=== PATIENT | female | born 1990 | race Caucasian/White ===

== ENCOUNTER 2020-08-04 16:58 | Inpatient (IN) | payer OTHER ==
[~2020-08-04 16:58] MED LIST: Iopamidol-370 76% 500 ML 1 ML ONE
[2020-08-04 18:37] LABS: #Basophils 0.1 thou/uL (0.0-0.2); #Eosinphils 0.3 thou/uL (0.0-0.7); #Monocytes 1.3 thou/uL (0.11-0.59); #Neutrophils 4.3 thou/uL (1.40-6.50); %Basophils 0.9 % (0.0-1.0); %Eosinophils 2.9 % (0.0-10.0); %Lymphocytes 33.5 % (21.0-51.0); %Monocytes 14.2 % (0.0-10.0); %Neutrophils 48.6 % (42.0-75.0); Hemoglobin 13.4 g/dL (12.0-16.0); Mean Corpuscular HGB CONC 33.3 g/dL (32.0-36.0); Mean Corpuscular Hemoglobin 31.6 pg (27.0-31.0); Mean Platelet Volume 8.1 fL (7.4-10.4); Platelet Count 128 thou/uL (130-400); RBC Distribution Width 11.8 % (11.5-14.5); Red Blood Cell (RBC) Count 4.23 mill/uL (4.20-5.40); White Blood Cell (WBC) Count 8.9 thou/uL (4.8-10.8)
[2020-08-04 18:43] LABS: Bilirubin Negative (Negative); Blood, Urine Negative (Negative); Clarity Clear (Clear); Glucose, Urine (Dipstick) Normal (Negative); Ketone, Urine Negative (Negative); Leukocyte Negative Leu/uL (Negative); Nitrite Negative (Negative); Protein, Urine (Dipstick) Negative (Neg-Trace); Specific Gravity, Urine 1.015 (1.002-1.036); Urobilinogen Normal mg/dL (Less than 2)
[2020-08-04 18:45] LABS: BHCG - Serum Negative (NEGATIVE); Pregs Control Background? CLEAR/WHITE (CLR/WHITE); Pregs Control Bar Appear? YES (CONTROL BAR)
[2020-08-04 18:52] LABS: ALT (SGPT) 21 U/L (8-55); AST (SGOT) 13 U/L (5-34); Albumin 3.7 g/dL (3.5-5.0); Alkaline Phosphatase 64 U/L (40-110); Anion Gap 10 mmol/L (10-20); BUN (Urea Nitrogen) 13 mg/dL (7.0-18.7); Bilirubin, Total Less than 0.2 mg/dL (0.2-1.2); Calc. Creatinine Clearance 0 mL/min (70-130); Carbon Dioxide 29 mmol/L (22-29); Chloride 103 mmol/L (98-107); Globulin 3.3 g/dL (2.4-3.5); Glucose 96 mg/dL (70-105); Lipase 28 U/L (8-78); Potassium 3.9 mmol/L (3.5-5.1); Sodium 138 mmol/L (136-145)
--- NOTE | 2020-08-04 19:40 | CT ---
CT abdomen and pelvis with IV contrast HISTORY: Abdominal pain. Crohn's disease. COMPARISON: 03/05/2018. FINDINGS: The lung bases are clear. Bilateral breast implants partially visualized. Solid organs are intact. Urinary bladder is unremarkable. IUD in the endometrial cavity. No free air or free fluid. No evidence of bowel obstruction or inflammation. Appendix unremarkable. Large amount of stool predom inantly within the right colon. IMPRESSION : Constipation. No evidence of bowel inflammation.
[2020-08-04] MEDS ORDERED: methylPREDNISolone Sod Succ 40 MG VIAL IVP SCH (22:00)
[2020-08-04] MEDS ORDERED: Bacteriostatic Water 30 ML VIAL FS PRN (22:15)
[2020-08-04] MEDS ORDERED: GoLYTELY 4,000 ml Bottle PO SCH (23:00)
[2020-08-04] MEDS: methylPREDNISolone Sod Succ 40 MG VIAL IVP SCH (23:26)
--- NOTE | 2020-08-04 23:56 | PDOC.HHP ---
Hospitalist HPI - History of Present Illness History of Present Illness: ADMISSION DATE: 08/04/2020 TIME OF ASSESSMENT: 2330 PRIMARY CARE PHYSICIAN: Dr. Rose CHIEF COMPLAINT: Rectal bleeding HPI: The patient is a 29-year-old female who presented to the ER with complaints of rectal bleeding ongoing for approximately 1 month. Over the past month she has seen a provider at her [facility] office who placed her on oral steroids. Patient states that these oral steroids cause leg pains and that they have not helped her flares. Over this past month her primary care provider has also completed 2 rounds of outpatient IV steroid infusions. Patient was able to have 1 normal bowel movement on 07/31/2020 but now is experiencing rectal bleeding again and feels she is constipated. She is also placed herself on a clear liquid diet as whenever she eats food causes diffuse abdominal cramping and pain. She denies nausea, vomiting, dysuria, fever, contact with sick persons. ED COURSE: Today in the ER they completed a CT of the abdomen and pelvis and completed lab work. They administered no medications. Dr. Gann with gastroenterology saw the patient in the ER and she is to begin a bowel prep tonight. VITAL SIGNS SunAug 04, 2020 17:00 AMINA Pace Dannette Pulse: 73, Resp: 16, Temp: 98.0 (Oral), Pain: 0, O2 sat: 99 on (Room Air), Time: 08/04/2020 17:00. VITAL SIGNS SunAug 04, 2020 17:18 AMINA Ricardo Amanda BP: 116/72, MAP: 86, Pulse: 89, Resp: 17, Temp: 98.5 (Oral), Pain: 0, O2 sat: 100 on (Room Air), Time: 08/04/2020 17:18. VITAL SIGNS SunAug 04, 2020 21:22 AMINA Ricardo Amanda BP: 101/66, MAP: 77, Pulse: 78, Resp: 17, Temp: 98.0 (Oral), Pain: 0, O2 sat: 98 on (Room Air), Time: 08/04/2020 21:22. PAST MEDICAL HISTORY: Crohn's disease PAST SURGICAL HISTORY: No surgical history SOCIAL HISTORY: Patient lives at home with family. She denies smoking, drugs, alcohol use. FAMILY HISTORY: Unknown ALLERGIES: No known drug allergies CURRENT MEDICATIONS: No home medications Hospitalist ROS - Review of Systems Gastrointestinal: reports: constipation, hematochezia All other systems reviewed; all pertinent +/- noted in HPI/Subj - Medication Medications: Active Medications Generic Name Dose Route Start Last Admin Trade Name Aditya PRN Reason Stop Dose Admin Methylprednisolone Sodium Succinate 40 mg 08/04/20 23:59 08/04/20 23:26 Methylprednisolone Sod Succ 40 Mg Vial IVP 40 mg 0800,1600,2359 KATI Administration Polyethylene Glycol/Electrolytes 4,000 ml 08/04/20 23:00 08/04/20 23:27 Golytely 4,000 Ml Bottle PO 08/05/20 06:00 4,000 ml NOW KATI Administration Hospitalist History - Past Medical History Source: patient - Exam General Appearance: NAD, awake alert Eye: PERRL, anicteric sclera Neck: supple, symmetric Heart: RRR, no murmur, no gallops, no rubs, normal peripheral pulses Respiratory: CTAB, no wheezes, no rales, no ronchi Gastrointestinal: soft, non-tender, non-distended, normal bowel sounds Skin: normal turgor Musculoskeletal: normal tone, normal strength, no muscle wasting Psychiatric: normal affect, normal behavior Hospitalist Results - Labs Result Diagrams: 08/06/20 05:08 08/06/20 05:08 Lab results: WBC 8.9 thou/uL (4.8-10.8) 08/04/20 18:17 Hgb 13.4 g/dL (12.0-16.0) 08/04/20 18:17 Hct 40.2 % (36.0-47.0) 08/04/20 18:17 MCV 95.0 fL (78.0-98.0) 08/04/20 18:17 Plt Count 128 thou/uL (130-400) L 08/04/20 18:17 Neutrophils % 48.6 % (42.0-75.0) 08/04/20 18:17 Sodium 138 mmol/L (136-145) 08/04/20 18:17 Potassium 3.9 mmol/L (3.5-5.1) 08/04/20 18:17 Chloride 103 mmol/L (98-107) 08/04/20 18:17 Carbon Dioxide 29 mmol/L (22-29) 08/04/20 18:17 BUN 13 mg/dL (7.0-18.7) 08/04/20 18:17 Creatinine 0.73 mg/dL (0.6-1.1) 08/04/20 18:17 Glucose 96 mg/dL (70-105) 08/04/20 18:17 Lactic Acid 0.9 mmol/L (0.5-2.2) 08/04/20 18:17 Calcium 9.0 mg/dL (7.8-10.44) 08/04/20 18:17 Total Bilirubin Less than 0.2 mg/dL (0.2-1.2) L 08/04/20 18:17 AST 13 U/L (5-34) 08/04/20 18:17 ALT 21 U/L (8-55) 08/04/20 18:17 Alkaline Phosphatase 64 U/L (40-110) 08/04/20 18:17 C-Reactive Protein Less than 0.50 mg/dL (= or < 0.5) 08/04/20 18:17 Serum Total Protein 7.0 g/dL (6.0-8.3) 08/04/20 18:17 Albumin 3.7 g/dL (3.5-5.0) 08/04/20 18:17 Lipase 28 U/L (8-78) 08/04/20 18:17 Urine Ketones Negative mg/dL (Negative) 08/04/20 18:34 Urine Blood Negative (Negative) 08/04/20 18:34 Urine Nitrite Negative (Negative) 08/04/20 18:34 Ur Leukocyte Esterase Negative Magaly/uL (Negative) 08/04/20 18:34 - Radiology Interpretation CT scan - abdomen Additional Comment: FINDINGS: The lung bases are clear. Bilateral breast implants partially visualized. Solid organs are intact. Urinary bladder is unremarkable. IUD in the endometrial cavity. No free air or free fluid. No evidence of bowel obstruction or inflammation. Appendix unremarkable. Large amount of stool predominantly within the right colon. Hospitalist H&P A/P - Plan Plan: Constipation Patient to begin bowel prep tonight per Dr. Gann Clear liquid until 7 AM and then n.p.o. Colonoscopy scheduled for a.m. Ulcerative colitis versus Crohn's Continue IV steroids scheduled Stool studies once patient has bowel movement Rectal bleeding Monitor labs in a.m. Patient typed and crossed in the ER SCDs for DVT prophylaxis, no anticoagulants due to bleeding Monitor vital signs every 4 hour CODE STATUS: Full Surrogate decision-maker is her mother Patient was discussed with Dr. Henriquez
[2020-08-05 00:08] VITALS: BMI 22.3
[2020-08-05] MEDS ORDERED: Ondansetron PF 4 MG/2 ML Vial IVP PRN (00:35)
[2020-08-05] MEDS ORDERED: Ondansetron ODT 4 MG TAB PO PRN (00:35)
--- NOTE | 2020-08-05 03:07 | CON ---
DATE OF CONSULTATION: 08/04/2020 CHIEF COMPLAINT: Blood in the stool, abdominal pain. HISTORY OF PRESENT ILLNESS: Ms. Ribeiro is a 29-year-old woman with a history of left-sided ulcerative colitis, who presented to the emergency room this evening with a one month history of red blood in the stool and cramping, left lower quadrant abdominal pain, lasting several minutes after meals and up to 10 small volume mucus stools per day and constipation. She has a history of ulcerative proctitis or left-sided colitis, which she has treated intermittently with short courses of IV steroids. A month ago, she was seen in the clinic and was started on prednisone. However, she develops aching pain in the muscles of her legs when she takes prednisone and so she did not remain on this for long. A week ago, she saw her primary physician, who gave her IV Solu-Medrol twice daily for four days and then the symptoms failed to improve and her dose was increased for a couple of days and ultimately today, she finally came on into the emergency room for further care. She has not been on long-term treatment for ulcerative colitis and has not kept followup appointments with her primary GI physician, Dr. Carey. Her weight has been stable. She has had no fevers. No nausea or vomiting. No rashes or joint problems or eye problems. PAST MEDICAL HISTORY: Left-sided ulcerative colitis diagnosed around age 13. PAST SURGICAL HISTORY: Breast implants. FAMILY HISTORY: Negative for inflammatory bowel disease or GI malignancy. SOCIAL HISTORY: No alcohol, tobacco, or drugs. ALLERGIES: NO KNOWN DRUG ALLERGIES. MEDICATIONS: Prior to admission, none. REVIEW OF SYSTEMS: Negative x10 systems reviewed except as stated in the history of present illness. PHYSICAL EXAMINATION: VITAL SIGNS: Blood pressure 116/72, pulse 89, and temperature 98.5. GENERAL: She is in no acute distress. Alert and oriented x3. HEENT: Eyes have no scleral icterus. Oropharynx is clear without lesions. No cervical or supraclavicular lymphadenopathy. LUNGS: Clear to auscultation bilaterally. HEART: Regular rate and rhythm without murmur. ABDOMEN: Soft. Minimal tenderness in left lower quadrant without guarding. Bowel sounds are present. EXTREMITIES: No lower extremity edema. Cranial nerves are grossly intact. LABORATORY DATA: White blood cell count 8.9, hemoglobin 13.4, platelets 128. Bilirubin 0.2, AST 13, ALT 21, alkaline phosphatase 64, creatinine 0.73, albumin 3.7. IMPRESSION: 1. Ulcerative chronic proctitis versus left-sided colitis. She has had symptoms of chronic rectal inflammation with unproductive urges and mucus stools and blood in the stool up to 10 times per day. She does get some left lower quadrant cramping after eating. She has not been treating her disease with chronic medications and just has taken IV Solu-Medrol periodically over the last several years. Her last flare was three years ago. 2. She reports side effects with prednisone with aching muscle pain throughout her legs. RECOMMENDATIONS: 1. We will give methylprednisolone IV 40 mg q.8 hours. 2. Stool studies including Clostridium difficile culture, ova and parasite. 3. We will plan a bowel prep this evening and colonoscopy tomorrow. Please note that the CT scan in the ER just shows large amount of retained stool in the right colon, but was otherwise negative. 4. Depending on the findings with colonoscopy to determine the extent of her disease, she might need to be started on rectal treatment either mesalamine or steroids or potentially chronic immune suppression. She has not really been compliant with long-term treatment prior to this. She seems more willing at this time to consider pursuing this. Job ID: [id number]
[2020-08-05 06:46] LABS: #Lymphocytes 0.7 thou/uL (1.20-3.40); #Monocytes 0.1 thou/uL (0.11-0.59); #Neutrophils 7.5 thou/uL (1.40-6.50); %Basophils 0.2 % (0.0-1.0); %Eosinophils 0.3 % (0.0-10.0); %Lymphocytes 8.4 % (21.0-51.0); %Monocytes 0.8 % (0.0-10.0); %Neutrophils 90.3 % (42.0-75.0); Hemoglobin 13.1 g/dL (12.0-16.0); Mean Corpuscular HGB CONC 32.8 g/dL (32.0-36.0); Mean Corpuscular Hemoglobin 31.3 pg (27.0-31.0); Mean Corpuscular Volume 95.6 fL (78.0-98.0); Mean Platelet Volume 8.4 fL (7.4-10.4); Platelet Count 125 thou/uL (130-400); RBC Distribution Width 11.6 % (11.5-14.5); Red Blood Cell (RBC) Count 4.18 mill/uL (4.20-5.40); White Blood Cell (WBC) Count 8.3 thou/uL (4.8-10.8)
[2020-08-05 07:05] LABS: Anion Gap 12 mmol/L (10-20); BUN (Urea Nitrogen) 9 mg/dL (7.0-18.7); Calc. Creatinine Clearance 129 mL/min (70-130); Calcium 8.6 mg/dL (7.8-10.44); Carbon Dioxide 28 mmol/L (22-29); Chloride 105 mmol/L (98-107); Glucose 130 mg/dL (70-105); Potassium 3.8 mmol/L (3.5-5.1); Sodium 141 mmol/L (136-145)
[2020-08-05] MEDS: methylPREDNISolone Sod Succ 40 MG VIAL IVP SCH ×3 (08:35→23:50)
[2020-08-05] MEDS ORDERED: FLU VACC QS2020-21(6MOS UP)/PF 60 MCG/0.5 ML SYRINGE IM ONE (09:00)
--- NOTE | 2020-08-05 13:26 | PDOC.HOSPP ---
- Subjective Encounter Date: 08/05/20 Encounter Time: 10:00 Subjective: CC: abdominal pain, bloody diarrhea Patient states her abdominal pain is resolved. She continues to have bloody stools. Patient states that she typically has bloody stools 10 times a day during her flares. She said the stools are pellet like. She denies fevers. She states he had tried IV steroids as an outpatient due to Covid with no relief of her symptoms. She states that she had tried a clear liquid diet which had helped her abdominal pain some but did not help her bloody stools. She was diagnosed with Crohn's disease initially when she was 13 years old. 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 Her mother states that later they decided she had u lcerative colitis instead of Crohn's disease. She is been following with Dr. Payne 10 years - Objective Vital Signs & Weight: Vital Signs (12 hours) Temp Pulse Resp BP Pulse Ox 08/05/20 12:26 98.0 F 81 16 87/44 L 97 08/05/20 08:45 97.8 F 86 16 96/60 97 08/05/20 03:24 97.6 F 71 16 98/64 99 Weight Weight 151 lb I&O: 08/04/20 08/05/20 08/06/20 06:59 06:59 06:59 Intake Total 15 Balance 15 Result Diagrams: 08/05/20 05:36 08/05/20 05:36 Hospitalist ROS - Review of Systems Constitutional: denies: fever, chills - Medication Medications: Active Medications Generic Name Dose Route Start Last Admin Trade Name Aditya PRN Reason Stop Dose Admin Methylprednisolone Sodium Succinate 40 mg 08/04/20 23:59 08/05/20 08:35 Methylprednisolone Sod Succ 40 Mg Vial IVP 40 mg 0800,1600,2359 [facility] Administration - Exam General Appearance: NAD, awake alert Eye: PERRL, anicteric sclera ENT: normocephalic atraumatic, no oropharyngeal lesions Neck: no JVD Heart: RRR, no murmur, no gallops, no rubs Respiratory: CTAB, no wheezes, no rales, no ronchi Gastrointestinal: soft, normal bowel sounds Gastrointestinal - other findings: Mild left lower quadrant tenderness Extremities: no cyanosis, no clubbing, no edema Skin: normal turgor, no lesions, no rashes Neurological: cranial nerve grossly intact, normal sensation to touch, no weakness Hosp A/P - Plan CT abdomen: Large amount of stool in the right colon. No evidence of inflamma tion Is a 29-year-old female with a past medical history of IBD presented to the emergency room with bloody diarrhea #Abdominal Pain #Bloody stools - possibly ulcerative colitis flare -Continue IV steroids -Patient is scheduled for colonoscopy today, follow-up biopsy results -We will change patient to inpatient status since anticipate greater than 2 midnight DVT prophylaxis: holding
[2020-08-05] MEDS ORDERED: GoLYTELY 4,000 ml Bottle PO SCH (15:30)
[2020-08-05 19:17] LABS: SARS-CoV-2 NAA Rapid Test Not Detected (NotDetected)
--- NOTE | 2020-08-05 21:13 | PRG ---
DATE OF SERVICE: 08/05/2020 REASON FOR CONSULTATION: Probable ulcerative colitis flare. SUBJECTIVE: Today, the patient was scheduled for a colonoscopy for further evaluation of her abdominal pain and hematochezia. However, the patient had not had a COVID testing done on admission and therefore had not undergone pre-procedure screening appropriately. As a result, she was delayed until tomorrow until we can get the results of the COVID testing back. However, in the meantime, the patient has had resolution of her abdominal pain and she has had resolution of her hematochezia except for minimal amounts of blood-tinged mucoid stools since undergoing the colonoscopy prep last night. Otherwise, she denies any nausea, vomiting, fevers, chills, abdominal pain, hematemesis, or melena. OBJECTIVE: VITAL SIGNS: Temperature 97.9, pulse 77, blood pressure 101/62, respiratory rate 16, saturating 96% on room air. GENERAL: The patient was lying in bed, in no acute distress. Alert and oriented x4. CARDIOVASCULAR: Regular rate and rhythm. RESPIRATORY: Clear to auscultation bilaterally. ABDOMEN: Normoactive bowel sounds. Soft, nontender, nondistended. EXTREMITIES: No cyanosis, clubbing, or edema. LABORATORY DATA: CBC with a white blood cell count of 8.3, hemoglobin 13.1, hematocrit 40, platelets 125. Chemistry with a sodium of 141, potassium 3.8, chloride 105, CO2 of 28, BUN 9, creatinine 0.69, glucose 130. Infectious stool workup was negative for C. difficile, Campylobacter, and E. coli. IMAGING DATA: No current GI imaging is available for review. ASSESSMENT AND PLAN: The patient is a 29-year-old female with past medical history of left-sided ulcerative colitis, presenting with increased abdominal pain, diarrhea, and hematochezia consistent with an ulcerative colitis flare. 1. Ulcerative colitis flare. Patient initially presented with increased lower abdominal pain, diarrhea, and hematochezia that was very similar to ulcerative colitis flares that she has experienced in the past. She was subsequently placed on IV steroids as part of initial treatment after stool studies were negative for an obvious pathogen. She was planned for colonoscopy on August 05, 2020, to determine extent and severity of disease, but this was delayed due to pre-procedure testing the patient for COVID. Currently doing better on IV steroids with resolution of her abdominal pain and minimization of her bloody bowel movement since undergoing the colonoscopy prep. RECOMMENDATIONS: 1. Would place the patient on a clear-liquid diet tonight along with repeat GoLYTELY prep in anticipation of the colonoscopy tomorrow. 2. Would perform colonoscopy tomorrow for intraluminal evaluation of the colon and determine extent and severity of disease. 3. Antibiotics are not indicated at this time given no obvious pathogen has been seen on studies. 4. Further recommendations to follow colonoscopy. 5. We will continue methylprednisolone IV 40 mg every 8 hours. We will continue to follow. Please call with any questions. Job ID: [id number]
[2020-08-06] MEDS ORDERED: GoLYTELY 4,000 ml Bottle PO SCH (03:00)
[2020-08-06 05:20] LABS: #Lymphocytes 0.9 thou/uL (1.20-3.40); #Monocytes 0.4 thou/uL (0.11-0.59); #Neutrophils 10.7 thou/uL (1.40-6.50); %Basophils 0.1 % (0.0-1.0); %Lymphocytes 7.5 % (21.0-51.0); %Neutrophils 89.3 % (42.0-75.0); Hemoglobin 12.4 g/dL (12.0-16.0); Mean Corpuscular HGB CONC 33.8 g/dL (32.0-36.0); Mean Corpuscular Hemoglobin 31.3 pg (27.0-31.0); Mean Corpuscular Volume 92.7 fL (78.0-98.0); Mean Platelet Volume 8.3 fL (7.4-10.4); Platelet Count 134 thou/uL (130-400); RBC Distribution Width 11.6 % (11.5-14.5); Red Blood Cell (RBC) Count 3.95 mill/uL (4.20-5.40)
[2020-08-06 05:39] LABS: Anion Gap 12 mmol/L (10-20); BUN (Urea Nitrogen) 11 mg/dL (7.0-18.7); Calc. Creatinine Clearance 133 mL/min (70-130); Calcium 8.7 mg/dL (7.8-10.44); Carbon Dioxide 26 mmol/L (22-29); Chloride 104 mmol/L (98-107); Glucose 155 mg/dL (70-105); Potassium 3.9 mmol/L (3.5-5.1); Sodium 138 mmol/L (136-145)
[2020-08-06 08:11] VITALS: BP 95/51; TEMP 97.9
[2020-08-06] MEDS: methylPREDNISolone Sod Succ 40 MG VIAL IVP SCH ×2 (08:29→15:42)
[2020-08-06] MEDS ORDERED: PROPOFOL 200 MG/20 ML VIAL ONE (12:32)
[2020-08-06] MEDS ORDERED: Lidocaine 1% PF 5 ML VIAL ONE (12:32)
[2020-08-06] MEDS ORDERED: Promethazine HCl 25 MG/ML VIAL IM PRN (12:59)
[2020-08-06] MEDS ORDERED: Ondansetron HCl/PF 4 MG/2 ML Vial IVP PRN (12:59)
[2020-08-06] MEDS ORDERED: Promethazine HCl 25 MG/ML VIAL SLOW IVP PRN (12:59)
[2020-08-06] MEDS ORDERED: Ketorolac Tromethamine 30 MG/ML VIAL IVP PRN (12:59)
[2020-08-06] MEDS ORDERED: Meperidine HCl/PF 25 MG/ML VIAL SLOW IVP PRN (12:59)
--- NOTE | 2020-08-06 15:34 | OP ---
DATE OF PROCEDURE: 08/06/2020 PROCEDURE PERFORMED: Colonoscopy with biopsy. INDICATIONS FOR PROCEDURE: History of ulcerative colitis with increased abdominal pain and hematochezia. DESCRIPTION OF PROCEDURE: After the risks and benefits of the procedure were explained to the patient including risks of bleeding, infection, perforation, reactions to anesthesia, aspiration, and/or pain, informed consent was obtained. The patient was then taken to the endoscopy suite where she was maneuvered into the left lateral decubitus position followed by introduction of deep sedation via propofol and anesthesia support. Once adequate sedation was achieved, a digital rectal examination was performed followed by introduction of the standard colonoscope, which was then advanced to the terminal ileum with significant difficulty due to redundancy of the colon, tortuosity of the colon, and significant looping of the scope. This was aided by manual abdominal pressure in order to facilitate passage of the scope. The quality of the prep was good with sporadic balls of solid stool, that were easily moved around for adequate visualization of the colonic mucosa. The patient tolerated the procedure well with no immediate perioperative complications. On conclusion of the procedure, all equipment was removed from the patient and she was transferred to PACU in satisfactory condition. FINDINGS: Digital rectal exam: Small external hemorrhoids were seen on external examination. Colon findings: Normal-appearing mucosa was seen within the terminal ileum as well as at the ileocecal valve and within the cecum itself. However, only centered around the appendiceal orifice, there was increased mucosal erythema and small punctate ulcerations, but no evidence of active or recent bleeding. Random biopsies were taken from both the appendiceal orifice as well as the terminal ileum and placed in 2 separate jars for further evaluation. Normal-appearing mucosa was then seen in the ascending colon, transverse colon, descending colon, and sigmoid colon. Random biopsies were taken from the right colon, transverse, and left colon and placed in 3 separate jars. However, starting at approximately 15 cm past the anal verge, there was a slight increase in mucosal erythema and mild loss of vascularity that changed abruptly to significant mucosal erythema, loss of vascularity and granularity, and innumerable punctate ulcerations from the anal verge to 10 cm past the anal verge. Multiple biopsies were then taken from the rectum and placed in a specimen jar for further evaluation. Small internal hemorrhoids were seen on rectal retroflexion. IMPRESSION: 1. [id number] ulcerative proctitis. 2. Inflammation surrounding the appendiceal orifice of indeterminate clinical significance. 3. Normal terminal ileum. 4. Small internal and external hemorrhoids. 5. Significant redundancy and tortuosity of the colon. RECOMMENDATIONS: 1. Would follow up on the biopsy results with repeat colonoscopy interval depending on the pathology report. 2. Would continue to trend the patient's hemoglobin and hematocrit given the number of biopsies taken today and transfuse as necessary to maintain the hemoglobin and hematocrit of 7/21. 3. Would continue the patient on IV steroids with the possibility of transferring the patient to rectal mesalamine/Canasa or placing the patient on budesonide 9 mg daily. (We will confer with the patient on which she would be more compliant with). 4. Would maintain a low-fiber diet for the time being given significant inflammation in the rectum. 5. Pain control per primary team. We will continue to follow. Please call with any questions. Job ID: [id number]
--- NOTE | 2020-08-06 18:37 | PDOC.DS.DS ---
Provider - Provider Date of Admission: 08/04/20 21:31 Date of Discharge: 08/06/20 Admitting Provider: Brett Henriquez MD Consultations: Gastroentrology Primary Care Physician: Alexa Rivera MD Course - Hospital Course Hospital Course: Discharge Diagnoses: 1. Ulcerative Colitis Flare 2. External and Internal Hemorrhoids 3. Constipation 4. Leukocytosis Brief HPI: 29-year-old female with a past medical history of ulcerative colitis presented to the emergency room with worsening abdominal pain and rectal bl eeding. The patient had received 2 rounds of IV Solu-Medrol infusion as an outpatient due to avoid having to come to the hospital due to Covid. She followed a clear liquid diet which helped her abdominal pain but not her bleeding. She follows with Dr. Carey as an outpatient. She saw his PA who re commended eating a regular diet and her abdominal pain worsened. She states that she was not on any therapy for her IBD. 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 CT scan of the abdomen in the emergency room showed no evidence of bowel inflammation. Patient was admitted for further work-up. HOSPITAL COURSE: Ulcerative Colitis flare: Patient was started on IV steroids while in the hospital. GI was consulted and the patient underwent a colonoscopy on 08/06 which showed small external hemorrhoids. There was increased erythema and small punctate ulcerations in her terminal ileum, mucosal erythema and loss of vascularity and ulcerations in the anal area. There were small internal hemorrhoids Biopsies of the right colon, transverse and left colon were taken as well as biopsies from the rectum. The patient was advised to start taking Canasa 1 g suppository daily as well as budesonide 9 mg daily. Patient was also given stool softeners for constipation as needed. She will follow up with Dr. Carey or Dr. Stephen in 1 week. She was advised to follow a low fiber diet with the patient states that she will advance her diet slowly as tolerated Pertinent Studies: CT abdomen: constipation. No evidence of bowel inflammation Procedures: Colonoscopy 08/05: 1. Moderate to severe ulcerative proctitis 2. Inflammation surrounding the appendiceal orifice of indeterminate clinical significance 3. Normal terminal ileum 4. Small internal and external hemorrhoids 5. Significant redundancy and tortuosity of the colon Resuscitation Status: 08/05/20 00:35 Resuscitation Status Routine Co-Sign Provider: Resuscitation Status: FULL: Full Resuscitation Discussed with: pt - Labs Lab Results: 08/06/20 05:08 08/06/20 05:08 Abnormal Lab Results - Last 48 hrs 08/04/20 18:17: Antibody Screen POSITIVE H, Crossmatch See Detail 08/04/20 18:17: Total Bilirubin Less than 0.2 L, Albumin/Globulin Ratio 1.1 L 08/04/20 18:17: MCH 31.6 H, Plt Count 128 L, Monocytes % 14.2 H, Monocytes # 1.3 H 08/05/20 05:36: RBC 4.18 L, MCH 31.3 H, Plt Count 125 L, Neutrophils % 90.3 H, Lymphocytes % 8.4 L, Neutrophils # 7.5 H, Lymphocytes # 0.7 L, Monocytes # 0.1 L 08/06/20 05:08: WBC 12.0 H, RBC 3.95 L, MCH 31.3 H, Neutrophils % 89.3 H, Lymphocytes % 7.5 L, Neutrophils # 10.7 H, Lymphocytes # 0.9 L Microbiology - Entire Visit 08/05/20 00:10 Stool - Liquid Stool Culture - Final 08/05/20 00:10 Stool Rapid Parasite Screen - Final 08/05/20 00:10 Stool C. difficile GDH Antigen & Toxins - Final 08/05/20 00:10 Stool - Liquid Campylobacter Antigen Assay - Final 08/05/20 00:10 Stool - Liquid Shiga Toxin Test - Final 08/04/20 18:36 Stool - Pending Stool Occult Blood (LANDRY) - Final - Physical Exam Vitals: Vital Signs (12 hours) Temp Pulse Resp BP Pulse Ox 08/06/20 08:10 97.9 F 77 16 95/51 L 98 Weight Admit Weight 151 lb Weight 151 lb Physical Exam: The patient was seen and examined on the day of discharge. Problem - Discharge Plan Plan of Treatment: Patient should follow-up with Dr. Carey or Dr. Stephen in 2 weeks. Consider repeat CBC to evaluate resolution of leukocytosis. - Time spent with Patient (mins): 35 Plan - Discharge Medications Prescriptions: Mesalamine [Canasa] 1,000 mg MN DAILY #30 supp Docusate [Colace] 100 mg PO BID PRN #30 cap PRN Reason: Constipation Polyethylene Glycol 3350 [Miralax] 17 gm PO DAILY PRN #30 pk PRN Reason: Constipation Budesonide [Ortikos] 6 mg PO DAILY #30 capsule.er Home Medications: Medication Instructions Recorded Confirmed Type Budesonide [Ortikos] 6 mg PO DAILY #30 capsule.er 08/06/20 Rx Docusate [Colace] 100 mg PO BID PRN #30 cap 08/06/20 Rx Mesalamine [Canasa] 1,000 mg MN DAILY #30 supp 08/06/20 Rx Polyethylene Glycol 3350 [Miralax] 17 gm PO DAILY PRN #30 pk 08/06/20 Rx Allergies: No Known Drug Allergies Allergy (Verified 12/15/19 04:37) PER DR CARRILLO IN ADMISSION ORDER - Discharge Instructions Activity:: Activity as Tolerated Additional Dietary Instructions:: Low fiber - Follow up Plan Referrals: Alexa Rivera MD [Primary Care Provider] - Disposition: HOME Quality - Care Measures CORE MEASURES:: N/A
== END 2020-08-06 16:50 | disposition home or self-care (01) | DRG 387 ==
LOC: ERS 16:58 → SURG B 21:31 → OBSVTOIN 21:31
PROVIDERS: ADMIT Internal Medicine; ATTEND Internal Medicine
PROC: 0DBB8ZX Excision of Ileum, Via Natural or Artificial Opening Endoscopic, Diagnostic (ICD-10-PCS; principal; 2020-08-06)
PROC: 0DBL8ZX Excision of Transverse Colon, Via Natural or Artificial Opening Endoscopic, Diagnostic (ICD-10-PCS; 2020-08-06)
PROC: 0DBF8ZX Excision of Right Large Intestine, Via Natural or Artificial Opening Endoscopic, Diagnostic (ICD-10-PCS; 2020-08-06)
PROC: 0DBG8ZX Excision of Left Large Intestine, Via Natural or Artificial Opening Endoscopic, Diagnostic (ICD-10-PCS; 2020-08-06)
PROC: 0DBP8ZX Excision of Rectum, Via Natural or Artificial Opening Endoscopic, Diagnostic (ICD-10-PCS; 2020-08-06)
DX: K51.50 Left sided colitis without complications (principal); Z20.828 Contact with and (suspected) exposure to other viral communicable diseases; K59.00 Constipation, unspecified; D72.829 Elevated white blood cell count, unspecified; K64.4 Residual hemorrhoidal skin tags; K64.8 Other hemorrhoids; Z23 Encounter for immunization; Z79.899 Other long term (current) drug therapy; K51.20 Ulcerative (chronic) proctitis without complications
CPT/HCPCS: 36415; 74177; 80048; 80053; 81003; 82274; 83605; 83690; 84703; 85025; 86140; 86850; 86870; 86900; 86901; 86922; 87045; 87046; 87324; 87328; 87329; 87427; 87449; 88305; 96374; 96376; G0378; J2704; J2920; Q9967; U0002